=== PATIENT | male | born 1985 | race Caucasian/White ===

== ENCOUNTER 2016-06-18 23:58 | Emergency (ER) | payer MEDICARE, OTHER ==
[2016-06-19] MEDS ORDERED: SODIUM CHLORIDE 0.9% 1,000 ML IV STA (00:16)
[2016-06-19] MEDS ORDERED: HYDROmorphone 1 MG/ML 1 ML SYRINGE IVP STA (00:16)
[2016-06-19] MEDS ORDERED: ONDANSETRON 4 MG/2 ML VIAL IVP STA (00:16)
--- NOTE | 2016-06-19 00:17 | ED ---
Abdominal Pain HPI - General Chief Complaint: Abdominal Pain Stated Complaint: R Sided Abd Pain Time Seen by Provider: 06/19/16 00:16 Source: patient, family, RN notes reviewed Mode of arrival: ambulatory Limitations: no limitations - History of Present Illness Initial Comments: Is a 30-year-old male with chief complaint of lleft lower quadrant pain for the past 2 days. Patient reports that he has had normal bowel movements and denies any nausea or Vomiting. Patient reports that the pain is worse with movements. Patient states that he has no past medical history. Patient denies any fever or chills. Patient denies dysuria, hematuria, nausea, vomiting. He dd eat popcorn and peanuts earlier today. Patient has no surgical history besides tonsillectomy and ankle surgery. - Related Data Previous Rx's Medication Instructions Recorded Ciprofloxacin HCl [Cipro] 500 mg PO Q12HR #20 tablet 06/19/16 HYDROcodone/APAP 10-325MG [[place] 1 tab PO Q6H PRN #20 tab 06/19/16 10-325] metroNIDAZOLE [Flagyl] 500 mg PO TID #30 tab 06/19/16 Allergies Allergy/AdvReac Type Severity Reaction Status Date / Time No Known Allergies Allergy Verified 06/19/16 00:08 Review of Systems ROS Statement: Those systems with pertinent positive or pertinent negative responses have been documented in the HPI. ROS Other: All systems not noted in ROS Statement are negative. Past Medical History Past Medical History: No Reported History History of Any Multi-Drug Resistant Organisms: None Reported Past Surgical History: Orthopedic Surgery, Tonsillectomy Past Anesthesia/Blood Transfusion Reactions: No Reported Reaction Past Psychological History: No Psychological Hx Reported Smoking Status: Former smoker Past Alcohol Use History: None Reported Past Drug Use History: None Reported - Past Family History Mother Family Medical History: No Reported History Father Family Medical History: No Reported History General Exam - General Exam Comments Initial Comments: Patient is a 30-year-old male. He does not appear to be in any acute distress. Limitations: no limitations General appearance: alert, in no apparent distress Head exam: Present: atraumatic, normocephalic, normal inspection Eye exam: Present: normal appearance, PERRL, EOMI. Absent: scleral icterus, conjunctival injection, periorbital swelling ENT exam: Present: normal exam, mucous membranes moist Neck exam: Present: normal inspection. Absent: tenderness, meningismus, lymphadenopathy Respiratory exam: Present: normal lung sounds bilaterally. Absent: respiratory distress, wheezes, rales, rhonchi, stridor Cardiovascular Exam: Present: regular rate, normal rhythm, normal heart sounds. Absent: systolic murmur, diastolic murmur, rubs, gallop, clicks GI/Abdominal exam: Present: soft, tenderness (Mild left lower quadrant tenderness.), normal bowel sounds. Absent: distended, guarding, rebound, rigid Extremities exam: Present: normal inspection, full ROM, normal capillary refill. Absent: tenderness, pedal edema, joint swelling, calf tenderness Back exam: Present: normal inspection Neurological exam: Present: alert, oriented X3, CN II-XII intact Psychiatric exam: Present: normal affect, normal mood Skin exam: Present: warm, dry, intact, normal color. Absent: rash Course Vital Signs 06/19/16 06/19/16 06/19/16 00:04 00:51 02:37 Temperature 99 F 97.8 F 97.8 F Pulse Rate 106 H 78 78 Respiratory 20 20 20 Rate Blood Pressure 124/77 111/56 118/72 O2 Sat by Pulse 97 98 Oximetry 06/19/16 03:18 Temperature 98 F Pulse Rate 78 Respiratory 18 Rate Blood Pressure 124/67 O2 Sat by Pulse 97 Oximetry Medical Decision Making - Medical Decision Making Patient is a 30 year old male with chief complaint of LLQ pain for 2 days. Labs show mild leukocytosis at 14,000. Urinalysis is remarkable for blood. Patients pain is controlled with narcotics and fluids. PAtient given CT without contrast to diferentiate between nephrolithiasis and diverticulitis. CT scan shows diverticulitis with no abscesa. PAtient will be given Cipro and Flagyl and pain medicine. Return parameters discussed. Patient understands treatmetn plan and will comply. Patient given initial antibiotic dose in EC. - Lab Data Result diagrams: 06/19/16 00:45 06/19/16 00:45 Lab Results 06/19/16 06/19/16 06/19/16 Range/Units 00:45 00:45 00:45 WBC 14.5 H (3.8-10.6) k/uL RBC 4.83 (4.30-5.90) m/uL Hgb 14.9 (13.0-17.5) gm/dL Hct 45.1 (39.0-53.0) % MCV 93.4 (80.0-100.0) fL MCH 30.8 (25.0-35.0) pg MCHC 33.0 (31.0-37.0) g/dL RDW 13.4 (11.5-15.5) % Plt Count 251 (150-450) k/uL Neutrophils % 75 % Lymphocytes % 16 % Monocytes % 5 % Eosinophils % 1 % Basophils % 1 % Neutrophils # 10.9 H (1.3-7.7) k/uL Lymphocytes # 2.3 (1.0-4.8) k/uL Monocytes # 0.8 (0-1.0) k/uL Eosinophils # 0.2 (0-0.7) k/uL Basophils # 0.1 (0-0.2) k/uL Sodium 141 (137-145) mmol/L Potassium 3.9 (3.5-5.1) mmol/L Chloride 104 (98-107) mmol/L Carbon Dioxide 25 (22-30) mmol/L Anion Gap 12 mmol/L BUN 11 (9-20) mg/dL Creatinine 0.80 (0.66-1.25) mg/dL Est GFR (MDRD) Af Amer >60 (>60 ml/min/1.73 sqM) Est GFR (MDRD) Non-Af >60 (>60 ml/min/1.73 sqM) Glucose 100 H (74-99) mg/dL Calcium 9.0 (8.4-10.2) mg/dL Total Bilirubin 1.1 (0.2-1.3) mg/dL AST 15 L (17-59) U/L ALT 38 (21-72) U/L Alkaline Phosphatase 62 (38-126) U/L Total Protein 7.1 (6.3-8.2) g/dL Albumin 4.2 (3.5-5.0) g/dL Amylase <30 L (30-110) U/L Lipase 61 (23-300) U/L Urine Color Yellow Urine Appearance Clear (Clear) Urine pH 6.5 (5.0-8.0) Ur Specific [place] 1.019 (1.001-1.035) Urine Protein Trace H (Negative) Urine Glucose (UA) Negative (Negative) Urine Ketones Negative (Negative) Urine Blood Small H (Negative) Urine Nitrate Negative (Negative) Urine Bilirubin Negative (Negative) Urine Urobilinogen 6.0 (<2.0) mg/dL Ur Leukocyte Esterase Negative (Negative) Urine RBC 15 H (0-5) /hpf Urine WBC 2 (0-5) /hpf Ur Squamous Epith Cells 1 (0-4) /hpf Urine Mucus Rare H (None) /hpf - Radiology Data Radiology results: report reviewed CT abdomen Diverticulitis of descending colon, no obstructing calculus of kidneys and ureters. hepatomegaly. This was read by Dr. Good. Disposition Clinical Impression: Diverticulitis Disposition: HOME SELF-CARE Condition: Good Instructions: Diverticulitis (ED), Diverticulitis Diet (ED) Additional Instructions: Patient started to complete hematocrit prescription. Follow-up with primary care provider. Return to the EC if any alarming signs or symptoms occur. Prescriptions: Ciprofloxacin HCl [Cipro] 500 mg PO Q12HR #20 tablet HYDROcodone/APAP 10-325MG [[place] 10-325] 1 tab PO Q6H PRN #20 tab PRN Reason: Pain metroNIDAZOLE [Flagyl] 500 mg PO TID #30 tab Referrals: Daniel Mcnair MD [Primary Care Provider] - 1-2 days Time of Disposition: 03:10
[2016-06-19 00:53] VITALS: PULSE 78
[2016-06-19 00:59] LABS: Basophils # (A) 0.1 k/uL (0-0.2); Basophils % (A) 1 %; CHCM 34.4; Eosinophils # (A) 0.2 k/uL (0-0.7); Eosinophils % (A) 1 %; HCT 45.1 % (39.0-53.0); HDW 2.68; HGB 14.9 gm/dL (13.0-17.5); Luc # (Auto) 0.22; Luc % (Auto) 2; Lymphocytes # (A) 2.3 k/uL (1.0-4.8); Lymphocytes % (A) 16 %; MCH 30.8 pg (25.0-35.0); MCV 93.4 fL (80.0-100.0); Mean Platelet Volume 7.8; Monocytes # (A) 0.8 k/uL (0-1.0); Monocytes % (A) 5 %; Neutrophils # (A) 10.9 k/uL (1.3-7.7); Neutrophils % (A) 75 %; RBC 4.83 m/uL (4.30-5.90); RDW 13.4 % (11.5-15.5); WBC 14.5 k/uL (3.8-10.6); WBC (Perox) 14.45
[2016-06-19 01:01] LABS: Appearance,Urine Clear (Clear); Bilirubin,Urine Negative (Negative); Glucose,Urine (UA) Negative (Negative); Ketones,Urine Negative (Negative); Leukocyte Esterase,Urine Negative (Negative); Mucus,Urine Rare /hpf; Nitrite,Urine Negative (Negative); PH, Urine 6.5 (5.0-8.0); Particle Count 2118; Protein,Urine Trace (Negative); RBC,Urine 15 /hpf (0-5); Specific Gravity,Urine 1.019 (1.001-1.035); Squamous Epithelial Cell,Urine 1 /hpf (0-4); UA Billing (MACRO vs. MICRO) MICRO; WBC,Urine 2 /hpf (0-5)
[2016-06-19 01:08] LABS: ALT 38 U/L (21-72); AST 15 U/L (17-59); Alkaline Phosphatase 62 U/L (38-126); Amylase <30 U/L (30-110); Anion Gap 12 mmol/L; Blood Urea Nitrogen 11 mg/dL (9-20); Carbon Dioxide 25 mmol/L (22-30); Chloride 104 mmol/L (98-107); Glucose 100 mg/dL (74-99); Non-African American GFR(MDRD) >60 (>60 ml/min/1.73 sqM); Potassium 3.9 mmol/L (3.5-5.1); Sodium 141 mmol/L (137-145); Total Bilirubin 1.1 mg/dL (0.2-1.3); Total Protein 7.1 g/dL (6.3-8.2)
--- NOTE | 2016-06-19 03:05 | CT ---
EXAMINATION TYPE: CT abdomen pelvis wo con DATE OF EXAM: 06/19/2016 1:32 AM COMPARISON: NONE HISTORY: left sided abd pain, renal stone protocol CT DLP: 2244.50 mGycm Automated exposure control for dose reduction was used. TECHNIQUE: Helical acquisition of images was performed from the lung bases through the pelvis. FINDINGS: LUNG BASES: Mild dependent atelectasis in both lung bases. LIVER/GB: There is mild hepatomegaly. Gallbladder appears grossly unremarkable. PANCREAS: No significant abnormality is seen. SPLEEN: No significant abnormality is seen. ADRENALS: No significant abnormality is seen. KIDNEYS: The right kidney is rotated anteriorly. No significant obstructing stones or hydronephrosis or hydrou reter is noted. Left kidney showed no obstructing or nonobstructing opaque stones or hydronephrosis or hydroureter. RETROPERITONEAL ADENOPATHY: None visualized REPRODUCTIVE ORGANS: No significant abnormality is seen URINARY BLADDER: Urinary bladder is not well distended and is limited for evaluation. PELVIC ADENOPATHY: None visualized. OSSEOUS STRUCTURES: Degenerative disc disease changes at L5-S1. Multilevel degenerative changes in t he lumbar spine. BOWEL: Stomach and small bowel loops appear grossly unremarkable. [id number] fecal material is noted in the colon. Mild to moderate colonic diverticulosis is not ed. There is evidence of fat stranding and mucosal wall thickening in the descending colon as seen in the axial image 87 and coronal image 48 in the colonic segment measuring approximately 9 cm in length in the coronal image 48. These findings are suggestive of acute diverticulitis changes with small amoun t of free fluid in the left paracolic gutter area and fat stranding. No significant drainable abscess collection is noted at this time. The appendix is not well visualized for evaluation. No significant inflammation is noted in the appen matthew area. OTHER: Somewhat prominent vascular structures are noted in the anterior abdominal and pelvic wall. Ge neralized edema and anasarca changes are noted in the chest and abdomen and pelvic wall. IMPRESSION: 1. ACUTE DIVERTICULITIS CHANGES INVOLVING DESCENDING COLON WITHOUT DRAINABLE ABSCESS in the axial momo ge 88. 2. No definite obstructing opaque stones or hydronephrosis is noted bilaterally. 3. Hepatomegaly. A phone report is given to Guera Murphy the PA at the time of the dictation.
[2016-06-19] MEDS ORDERED: metroNIDAZOLE 500 MG TAB PO STA (03:09)
[2016-06-19] MEDS ORDERED: CIPROFLOXACIN HCL 500 MG TAB PO STA (03:09)
[2016-06-19 03:20] VITALS: BP 124/67; RESP 18; TEMP 98
== END 2016-06-19 03:25 | disposition home or self-care (01) ==
LOC: EC 23:58
DX: K57.32 Diverticulitis of large intestine without perforation or abscess without bleeding (principal); Z87.891 Personal history of nicotine dependence
CPT/HCPCS: 36415; 80053; 82150; 83690; 85025; 81001; 74176; 99284; 96374; 96375; 96361 ×2; J2405; J1170

== ENCOUNTER 2016-07-11 19:12 | Emergency (ER) | payer MEDICARE, OTHER ==
[2016-07-11 19:39] VITALS: RESP 18; TEMP 97
[2016-07-11] MEDS ORDERED: SODIUM CHLORIDE 0.9% 1,000 ML IV ONE (20:04)
[2016-07-11 20:28] LABS: Basophils # (A) 0.1 k/uL (0-0.2); Basophils % (A) 1 %; CH 32.1; CHCM 34.1; Eosinophils # (A) 0.2 k/uL (0-0.7); Eosinophils % (A) 2 %; HCT 45.9 % (39.0-53.0); HDW 2.71; HGB 15.4 gm/dL (13.0-17.5); Luc # (Auto) 0.21; Luc % (Auto) 2; Lymphocytes # (A) 2.4 k/uL (1.0-4.8); Lymphocytes % (A) 26 %; MCH 31.8 pg (25.0-35.0); MCHC 33.6 g/dL (31.0-37.0); MCV 94.8 fL (80.0-100.0); Mean Platelet Volume 7.4; Monocytes # (A) 0.5 k/uL (0-1.0); Monocytes % (A) 5 %; Neutrophils # (A) 5.7 k/uL (1.3-7.7); Neutrophils % (A) 63 %; RBC 4.84 m/uL (4.30-5.90); RDW 13.3 % (11.5-15.5); WBC 9.1 k/uL (3.8-10.6); WBC (Perox) 8.86
[2016-07-11] MEDS ORDERED: NA PHOS,M-B/NA PHOS,DI-BA 133 ML ENEMA RECTAL STA (20:30)
[2016-07-11 20:48] LABS: ALT 33 U/L (21-72); AST 18 U/L (17-59); Alkaline Phosphatase 60 U/L (38-126); Anion Gap 11 mmol/L; Blood Urea Nitrogen 16 mg/dL (9-20); Calcium 9.3 mg/dL (8.4-10.2); Carbon Dioxide 27 mmol/L (22-30); Chloride 103 mmol/L (98-107); Glucose 100 mg/dL (74-99); Magnesium 1.9 mg/dL (1.6-2.3); Non-African American GFR(MDRD) >60 (>60 ml/min/1.73 sqM); Potassium 4.5 mmol/L (3.5-5.1); Sodium 141 mmol/L (137-145); Total Bilirubin 0.6 mg/dL (0.2-1.3); Total Protein 7.1 g/dL (6.3-8.2)
[2016-07-11] MEDS ORDERED: PEG 3350-NA SULF,BICARB,CL/KCL 4,000 ML BOTTLE PO ONE (21:05)
--- NOTE | 2016-07-11 21:05 | ED ---
General Adult HPI - General Chief complaint: Abdominal Pain Stated complaint: no bowel movement Time Seen by Provider: 07/11/16 19:54 Source: patient, family, RN notes reviewed Mode of arrival: ambulatory Limitations: no limitations - History of Present Illness Initial comments: 30-year-old male presenting for abdominal pain and constipation. Patient states that he has a history of constipation. He is recently seen by his PCP for this several days ago and was diagnosed with hemorrhoids and started on hemorrhoid cream. He states he still been straining when he tries to defecate. He has still had some blood on the toilet paper when he wipes. He denies any nausea or vomiting associated. He denies any fevers or chills. He denies any significant medical history. He denies any abdominal surgical history. Mother and father are also here with him providing history. - Related Data Home Medications Medication Instructions Recorded Confirmed Phenyleph/Pramoxin/Glycr/W.pet 1 applic RECTAL DAILY PRN 07/11/16 07/11/16 [Preparation H Cream] Previous Rx's Medication Instructions Recorded Ciprofloxacin HCl [Cipro] 500 mg PO Q12HR #20 tablet 06/19/16 HYDROcodone/APAP 10-325MG [[place] 1 tab PO Q6H PRN #20 tab 06/19/16 10-325] metroNIDAZOLE [Flagyl] 500 mg PO TID #30 tab 06/19/16 Bisacodyl [Dulcolax] 10 mg PO BID #20 tablet. 07/11/16 Allergies Allergy/AdvReac Type Severity Reaction Status Date / Time No Known Allergies Allergy Verified 07/11/16 20:08 Review of Systems ROS Statement: Those systems with pertinent positive or pertinent negative responses have been documented in the HPI. ROS Other: All systems not noted in ROS Statement are negative. Past Medical History Past Medical History: No Reported History Additional Past Medical History / Comment(s): constipation History of Any Multi-Drug Resistant Organisms: None Reported Past Surgical History: Orthopedic Surgery, Tonsillectomy Additional Past Surgical History / Comment(s): oral surgery Past Anesthesia/Blood Transfusion Reactions: No Reported Reaction Past Psychological History: No Psychological Hx Reported Smoking Status: Former smoker Past Alcohol Use History: None Reported Past Drug Use History: None Reported - Past Family History Mother Family Medical History: No Reported History Father Family Medical History: No Reported History General Exam - General Exam Comments Initial Comments: General: Awake and Alert. No acute distress. Does not appear acutely ill. Eyes: GEO, EOM intact. No nystagmus. No scleral icterus. HENT: Atraumatic, normocephalic. Mucous membranes moist. Trachea midline. Neck: The neck is supple, there is no tenderness or JVD. Cardiovascular: Regular rate and rhythm. No murmur, rub, or gallop is appreciated. Distal pulses intact. Respiratory: Lungs are clear to auscultation bilaterally. No wheezes, rales, rhonchi. No respiratory distress. Gastrointestinal: Soft, Nontender. No rebound or guarding. Mild distention. No masses or organomegaly noted. No CVA tenderness. Musculoskeletal: No tenderness. Normal ROM. No gross deformity. No strength deficits. Neurological: A&Ox3. CN II-XII grossly intact, There are no obvious motor or sensory deficits. Coordination appears grossly intact. Speech is normal. Skin: Skin is warm and dry and no rashes or lesions are noted. Psychiatric: Cooperative, appropriate mood & affect, normal judgment. Limitations: no limitations Course Vital Signs 07/11/16 19:36 Temperature 97.0 F L Pulse Rate 85 Respiratory 18 Rate Blood Pressure 140/78 O2 Sat by Pulse 96 Oximetry Medical Decision Making - Medical Decision Making 30-year-old male with history of chronic constipation presenting for constipation and mild abdominal pain. Abdominal exam without any significant tenderness, abdomen is soft and without evidence of peritonitis. Lab work was performed which is grossly unremarkable. Abdominal x-ray without evidence of obstruction or perforation. Patient was given an enema with some results. Discussed continued treatment of his constipation at home. Was given a bottle of mag citrate to use at home. Also provided with Rx for stool softeners and instructions. Discussed continuing his hemorrhoid cream. Discussed close follow-up with his PCP. Discussed concerning signs and symptoms for immediate return to the ED. Patient and family are agreeable with plan and discharge home. - Lab Data Result diagrams: 07/11/16 20:11 07/11/16 20:11 Lab Results 07/11/16 07/11/16 Range/Units 20:11 20:11 WBC 9.1 (3.8-10.6) k/uL RBC 4.84 (4.30-5.90) m/uL Hgb 15.4 (13.0-17.5) gm/dL Hct 45.9 (39.0-53.0) % MCV 94.8 (80.0-100.0) fL MCH 31.8 (25.0-35.0) pg MCHC 33.6 (31.0-37.0) g/dL RDW 13.3 (11.5-15.5) % Plt Count 271 (150-450) k/uL Neutrophils % 63 % Lymphocytes % 26 % Monocytes % 5 % Eosinophils % 2 % Basophils % 1 % Neutrophils # 5.7 (1.3-7.7) k/uL Lymphocytes # 2.4 (1.0-4.8) k/uL Monocytes # 0.5 (0-1.0) k/uL Eosinophils # 0.2 (0-0.7) k/uL Basophils # 0.1 (0-0.2) k/uL Sodium 141 (137-145) mmol/L Potassium 4.5 (3.5-5.1) mmol/L Chloride 103 (98-107) mmol/L Carbon Dioxide 27 (22-30) mmol/L Anion Gap 11 mmol/L BUN 16 (9-20) mg/dL Creatinine 0.90 (0.66-1.25) mg/dL Est GFR (MDRD) Af Amer >60 (>60 ml/min/1.73 sqM) Est GFR (MDRD) Non-Af >60 (>60 ml/min/1.73 sqM) Glucose 100 H (74-99) mg/dL Calcium 9.3 (8.4-10.2) mg/dL Magnesium 1.9 (1.6-2.3) mg/dL Total Bilirubin 0.6 (0.2-1.3) mg/dL AST 18 (17-59) U/L ALT 33 (21-72) U/L Alkaline Phosphatase 60 (38-126) U/L Total Protein 7.1 (6.3-8.2) g/dL Albumin 4.3 (3.5-5.0) g/dL Lipase 140 (23-300) U/L - Radiology Data Radiology results: report reviewed, image reviewed Disposition Clinical Impression: Nonspecific abdominal pain, Constipation Disposition: HOME SELF-CARE Condition: Stable Instructions: Abdominal Pain (ED), Constipation (ED) Additional Instructions: Please take Mag Citrate when you get home. Drink half the bottle, wait a few hours, if no bowel movement, finish the bottle. Please take a stool softener twice a day starting tomorrow until you being having regular bowel movements. After that you may take stool softener once a day. Prescriptions: Bisacodyl [Dulcolax] 10 mg PO BID #20 tablet.dr Referrals: Daniel Mcnair MD [Primary Care Provider] - 1-2 days Time of Disposition: 21:33
[2016-07-11] MEDS ORDERED: MAGNESIUM CITRATE 296 ML BOTTLE PO ONE (21:11)
--- NOTE | 2016-07-11 21:24 | XR ---
EXAMINATION TYPE: XR KUB DATE OF EXAM: 07/11/2016 9:07 PM COMPARISON: 08/08/2009 HISTORY: Constipation TECHNIQUE: 3 views FINDINGS: Bowel gas pattern is normal. There is no sign of intestinal obstruction or pneumoperitoneum . Fecal pattern is normal. There are no pathologic calcifications over the kidneys. Lung bases are cl ear. IMPRESSION: Nonacute abdomen. There is clearing of the small bowel air-fluid levels compared to old e xam.
[2016-07-11 21:44] VITALS: BP 138/79; PULSE 77
== END 2016-07-11 21:45 | disposition home or self-care (01) ==
LOC: EC 19:12
DX: K59.00 Constipation, unspecified (principal); Z79.2 Long term (current) use of antibiotics; Z79.899 Other long term (current) drug therapy; Z87.891 Personal history of nicotine dependence
CPT/HCPCS: 36415; 74000; 80053; 83690; 83735; 85025; 96360; 99284

== ENCOUNTER 2019-02-15 19:40 | Emergency (ER) | payer MEDICARE, OTHER ==
[2019-02-15 20:21] VITALS: TEMP 97.4
--- NOTE | 2019-02-15 21:48 | ED ---
Lower Extremity Injury HPI - General Chief Complaint: Extremity Injury, Lower Stated Complaint: lower extremity pain Time Seen by Provider: 02/15/19 20:27 Source: patient Mode of arrival: ambulatory Limitations: no limitations - History of Present Illness Initial Comments: 33-year-old male with history told to place presents emergency part for chief complaint of bilateral anterior thigh pain x 1 day. Patient states after pushing carts yesterday at [employer] he has bilateral thigh pain. Patient denies any urinary symptoms or dark brown urine. Patient denies any hip pain or knee pain. Patient states he thinks he overdid it and was too active. Remaining review of system negative, denies redness, leg swelling. Patient is accompanied by his girlfriend. No further complaints. - Related Data Home Medications Medication Instructions Recorded Confirmed Phenyleph/Pramoxin/Glycr/W.pet 1 applic RECTAL DAILY PRN 07/11/16 07/11/16 [Preparation H Cream] Previous Rx's Medication Instructions Recorded Ciprofloxacin HCl [Cipro] 500 mg PO Q12HR #20 tablet 06/19/16 HYDROcodone/APAP 10-325MG [[place] 1 tab PO Q6H PRN #20 tab 06/19/16 10-325] metroNIDAZOLE [Flagyl] 500 mg PO TID #30 tab 06/19/16 Bisacodyl [Dulcolax] 10 mg PO BID #20 tablet. 07/11/16 Allergies Allergy/AdvReac Type Severity Reaction Status Date / Time No Known Allergies Allergy Verified 02/15/19 20:21 Review of Systems ROS Statement: Those systems with pertinent positive or pertinent negative responses have been documented in the HPI. ROS Other: All systems not noted in ROS Statement are negative. Past Medical History Past Medical History: No Reported History Additional Past Medical History / Comment(s): constipation History of Any Multi-Drug Resistant Organisms: None Reported Past Surgical History: Orthopedic Surgery, Tonsillectomy Additional Past Surgical History / Comment(s): oral surgery Past Anesthesia/Blood Transfusion Reactions: No Reported Reaction Past Psychological History: No Psychological Hx Reported Smoking Status: Former smoker Past Alcohol Use History: None Reported Past Drug Use History: None Reported - Past Family History Mother Family Medical History: No Reported History Father Family Medical History: No Reported History General Exam - General Exam Comments Initial Comments: General: The patient is awake and alert, in no distress, and does not appear acutely ill. Eye: Pupils are equal, round and reactive to light, extra-ocular movements are intact. No nystagmus. There is normal conjunctiva bilaterally. No signs of icterus. Cardiovascular: There is a regular rate and rhythm. No murmur, rub or gallop is appreciated. Respiratory: Lungs are clear to auscultation, respirations are non-labored, breath sounds are equal. No wheezes, stridor, rales, or rhonchi. Musculoskeletal: Normal inspection of the lower extremities b/l. Pain to palpation of quadricepts, mild.Normal ROM, no tenderness LE joints.. Strength 5/5. Sensation intact. DP pulses equal bilaterally 2+. Neurological: A&O x 3. CN II-XII intact grossly, There are no obvious motor or sensory deficits. Coordination appears grossly intact. Speech is normal. Skin: Skin is warm and dry and no rashes or lesions are noted. Psychiatric: Cooperative, appropriate mood & affect, normal judgment. Limitations: no limitations Course Vital Signs 02/15/19 20:18 Temperature 97.4 F L Pulse Rate 82 Respiratory 16 Rate Blood Pressure 136/78 O2 Sat by Pulse 98 Oximetry Medical Decision Making - Medical Decision Making 33-year-old male who presents emergency department for chief complaint of bilateral anterior thigh pain. Patient states his pushing carts yesterday. States he feels he over did it. Patient pain reproducible. No joint pain. Patient is ambulatory. Neurovascular intact. Appears well. No history of falls or direct trauma. CK within normal limits. Urinalysis on [place]. At this time do feel patient is stable for discharge with outpatient primary care follow-up worse instructions were discussed mother who was patient's guardian appeared--she is agreeable to plan discharge at this time. Discussed case with Dr. Villatoro who was agreeable with care plan. - Lab Data Lab Results 02/15/19 02/15/19 Range/Units 21:57 21:57 Creatine Kinase 78 (55-170) U/L Urine Color Yellow Urine Appearance Turbid (Clear) Urine pH 8.0 (5.0-8.0) Ur Specific [place] 1.023 (1.001-1.035) Urine Protein Trace H (Negative) Urine Glucose (UA) Negative (Negative) Urine Ketones Negative (Negative) Urine Blood Negative (Negative) Urine Nitrite Negative (Negative) Urine Bilirubin Negative (Negative) Urine Urobilinogen 2.0 (<2.0) mg/dL Ur Leukocyte Esterase Negative (Negative) Urine RBC 4 (0-5) /hpf Amorphous Sediment Rare H (None) /hpf Disposition Clinical Impression: Quadriceps muscle strain Disposition: HOME SELF-CARE Condition: Good Instructions (If sedation given, give patient instructions): R.I.C.E. Treatment (ED) Additional Instructions: Please use medication as discussed. Please follow-up with family doctor in the next 2 days.d. Please return to emergency room if the symptoms increase or worsen or for any other concerns. Is patient prescribed a controlled substance at d/c from ED?: No Referrals: Daniel Mcnair MD [Primary Care Provider] - 1-2 days Time of Disposition: 22:28
[2019-02-15 22:25] LABS: Amorphous Sediment,Urine Rare /hpf; Appearance,Urine Turbid (Clear); Bilirubin,Urine Negative (Negative); Blood,Urine Negative (Negative); Color,Urine Yellow; Glucose,Urine (UA) Negative (Negative); Ketones,Urine Negative (Negative); Leukocyte Esterase,Urine Negative (Negative); Nitrite,Urine Negative (Negative); Protein,Urine Trace (Negative); RBC,Urine 4 /hpf (0-5); Specific Gravity,Urine 1.023 (1.001-1.035)
[2019-02-15 22:40] VITALS: BP 136/78; PULSE 82; RESP 16
== END 2019-02-15 22:46 | disposition home or self-care (01) ==
LOC: EC 19:40
DX: S76.119A Strain of unspecified quadriceps muscle, fascia and tendon, initial encounter (principal); Z87.891 Personal history of nicotine dependence; X50.9XXA Other and unspecified overexertion or strenuous movements or postures, initial encounter; Y93.89 Activity, other specified; Y92.69 Other specified industrial and construction area as the place of occurrence of the external cause
CPT/HCPCS: 36415; 81001; 82550; 99283

== ENCOUNTER 2021-04-09 14:29 | Emergency (ER) | payer MEDICARE, OTHER ==
[2021-04-09 15:11] VITALS: BP 123/83; PULSE 61; RESP 20; TEMP 98.1
--- NOTE | 2021-04-09 17:15 | XR ---
EXAMINATION TYPE: XR chest 2V DATE OF EXAM: 04/09/2021 COMPARISON: NONE HISTORY: Dizziness and cough TECHNIQUE: 2 views FINDINGS: Heart and mediastinum are normal. Lungs are clear. Diaphragm is normal. Bony thorax appears normal. IMPRESSION: Normal chest. No adverse change.
[2021-04-09] MEDS ORDERED: AZITHROMYCIN 500 MG TAB PO STA (17:27)
--- NOTE | 2021-04-09 17:28 | ED ---
General Adult HPI - General Chief complaint: Upper Respiratory Infection Stated complaint: Cough, Sinus Infection Time Seen by Provider: 04/09/21 15:58 Source: patient, RN notes reviewed, old records reviewed Mode of arrival: ambulatory Limitations: no limitations - History of Present Illness Initial comments: Patient is a 35-year-old male with past medical history that is unremarkable who presents emergency Department complaining of rhinorrhea as well as a mild productive cough for one day. He denies fevers. Denies any sick contacts. AR concerned that he may have Covid 19. Denies any fevers, abdominal pain, nausea, vomiting. Denies chest pain. Has no other acute complaints at this time. Patient was evaluated when he was placed in a room. - Related Data Previous Rx's Medication Instructions Recorded Azithromycin [Zithromax] 250 mg PO DAILY 4 Days #4 tab 04/09/21 Allergies Allergy/AdvReac Type Severity Reaction Status Date / Time No Known Allergies Allergy Verified 04/09/21 17:19 Review of Systems ROS Statement: Those systems with pertinent positive or pertinent negative responses have been documented in the HPI. Review of Systems: CONST: Denies fever EYES: Denies blurry vision ENT: Endorses nasal congestion, cough. C/V: Denies Chest pain RESP: Denies shortness of breath GI: Denies abdominal pain : Denies dysuria SKIN: Denies rash. MSK: Denies joint pain. NEURO: Denies headache ROS Other: All systems not noted in ROS Statement are negative. Past Medical History Past Medical History: No Reported History Additional Past Medical History / Comment(s): constipation History of Any Multi-Drug Resistant Organisms: None Reported Past Surgical History: Orthopedic Surgery, Tonsillectomy Additional Past Surgical History / Comment(s): oral surgery Past Anesthesia/Blood Transfusion Reactions: No Reported Reaction Past Psychological History: No Psychological Hx Reported Smoking Status: Never smoker Past Alcohol Use History: None Reported Past Drug Use History: None Reported - Past Family History Mother Family Medical History: No Reported History Father Family Medical History: No Reported History General Exam - General Exam Comments Initial Comments: General: Appears in no acute distress. HEAD: Normal with no signs of head trauma. EYES: PERRLA, EOMI, conjunctiva normal, no discharge. ENT: Hearing grossly intact, normal oropharynx. Active rhinorrhea. RESPIRATORY: Clear breath sounds bilaterally. No wheezes, rales, or rhonchi. C/V: Regular rate and rhythm. S1 and S2 auscultated, no edema, peripheral puls es 2+ and intact throughout ABD: Abd is soft, nontender, nondistended EXT: Normal range of motion, no obvious deformity SKIN: No rashes or lesions observed on exposed skin. NEURO: Alert and oriented x 4. Limitations: no limitations Course Vital Signs 04/09/21 15:09 Temperature 98.1 F Pulse Rate 61 Respiratory 20 Rate Blood Pressure 123/83 O2 Sat by Pulse 98 Oximetry Medical Decision Making - Medical Decision Making Based on the patient's presentation and physical exam, I'm concerned for possible COVID-19 pneumonia. Covid swab was obtained in triage and was negative. Due to the patient's mildly productive cough, I did recommend that we obtain a chest x-ray. We also sent him home on a Z-Aric for possible bronchitis. Patient was in agreement with this plan. I do not believe that he requires any further laboratory studies or imaging at this time. He is not hypoxic. He is in no respiratory distress. Chest x-ray shows no acute cardiopulmonary process. At this time I believe it is safe for him to be discharged home. Patient was in agreement this plan. He will be given a dose of azithromycin prior to discharge as well as a prescription. I will provide the patient with a prescription for azithromycin 200 mg for 4 days. I instructed the patient to follow up with their PCP in the next 3 days. I explained that the patient should return to the emergency department if they experience any worsening symptoms. Strict return precautions were discussed with the patient. The patient expressed understanding of these instructions. I answered all questions that the patient had. The patient was discharged home in fair condition with their prescriptions and follow up information. - Lab Data Lab Results 04/09/21 Range/Units 15:13 Coronavirus (PCR) Not Detected (Not Detectd) Disposition Clinical Impression: Bronchitis, URI (upper respiratory infection) Disposition: HOME SELF-CARE Condition: Fair Instructions (If sedation given, give patient instructions): Upper Respiratory Infection (ED) Prescriptions: Azithromycin [Zithromax] 250 mg PO DAILY 4 Days #4 tab Is patient prescribed a controlled substance at d/c from ED?: No Referrals: Daniel Mcnair MD [Primary Care Provider] - 1-2 days
== END 2021-04-09 17:47 | disposition home or self-care (01) ==
LOC: EC 14:29
DX: J40 Bronchitis, not specified as acute or chronic (principal); J06.9 Acute upper respiratory infection, unspecified
CPT/HCPCS: 71046; 87635; 99283; 99284

== ENCOUNTER 2021-11-10 14:30 | Emergency (ER) | payer MEDICARE, OTHER ==
[2021-11-10 15:02] VITALS: BP 131/85; PULSE 76; RESP 16; TEMP 98.4
--- NOTE | 2021-11-10 16:13 | ED ---
General Adult HPI - General Chief complaint: Recheck/Abnormal Lab/Rx Stated complaint: High HR Source: patient Mode of arrival: ambulatory Limitations: no limitations - History of Present Illness Initial comments: Mir is a 35yo M who presents to the ER today for evaluation of abnormal heart rate on home BP cuff last night. Patient reports he was feeling well, he checked his blood pressure because he was told he should check it regularly. When he checked it he reports a heart rate was between 151 and 166. Patient did not feel like his heart was racing, he had no chest pain palpitation shortness breath lightheadedness or diaphoresis. He reports he felt well and didn't think that this was right but wasn't sure. Patient did not recheck his blood pressure today or his heart rate. He decided to come to the hospital for a checkup. Patient remains asymptomatic today. - Related Data Home Medications Medication Instructions Recorded Confirmed No Known Home Medications 11/10/21 11/10/21 Allergies Allergy/AdvReac Type Severity Reaction Status Date / Time No Known Allergies Allergy Verified 11/10/21 16:16 Review of Systems ROS Statement: Those systems with pertinent positive or pertinent negative responses have been documented in the HPI. ROS Other: All systems not noted in ROS Statement are negative. Past Medical History Past Medical History: No Reported History Additional Past Medical History / Comment(s): constipation History of Any Multi-Drug Resistant Organisms: None Reported Past Surgical History: Orthopedic Surgery, Tonsillectomy Additional Past Surgical History / Comment(s): oral surgery Past Anesthesia/Blood Transfusion Reactions: No Reported Reaction Past Psychological History: No Psychological Hx Reported Smoking Status: Never smoker Past Alcohol Use History: None Reported Past Drug Use History: None Reported - Past Family History Mother Family Medical History: No Reported History Father Family Medical History: No Reported History General Exam - General Exam Comments Initial Comments: Physical Exam GENERAL: Patient is well-developed and well-nourished. Patient is nontoxic and well-hydrated and is in no distress. Morbidly obese HENT: Normocephalic, Atraumatic. EYES: PERRL, EOMI PULMONARY: Unlabored respirations. No audible rales rhonchi or wheezing was noted. CARDIOVASCULAR: There is a regular rate and rhythm without any murmurs gallops or rubs. Strong peripheral pulses ABDOMEN: Soft and nontender with normal bowel sounds. SKIN: Skin is clear with no lesions or rashes and otherwise unremarkable. : Deferred NEUROLOGIC: Patient is alert and oriented x3. Moving all extremities spontaneously MUSCULOSKELETAL: Normal extremities with adequate strength and full range of motion. PSYCHIATRIC: Normal psychiatric evaluation. Limitations: no limitations Course Vital Signs 11/10/21 14:58 Temperature 98.4 F Pulse Rate 76 Respiratory 16 Rate Blood Pressure 131/85 O2 Sat by Pulse 97 Oximetry EKG Findings - EKG Comments: EKG Findings:: EKG was obtained due to report of abnormal heart rate at home, EKG was obtained at 1540, rate is 68, rhythm is sinus, NJ interval 196, QRS 95 QTC 379 there are no acute ST elevations or depressions no evidence of ischemia or infarction or arrhythmia. Medical Decision Making - Medical Decision Making Patient was seen and evaluated, patient reports using a wrist blood pressure cuff last night and being told that his heart rate was elevated. He had no symptoms at that time. He's had no symptoms today he did not recheck his vital signs at home today. Patient's heart rate in the 60s to 70s here. EKG is sinus rhythm. At this time no further workup is indicated patient is stable for discharge home. Patient was advised that should he have a heart rate in the 160s her feel like his heart is racing he should call 911 or come to the hospital immediately for evaluation. Disposition Clinical Impression: Well adult exam Disposition: HOME SELF-CARE Condition: Stable Additional Instructions: If your heart rate is elevated, come to the hospital immediately, bring your blood pressure cuff as well so we can make sure it is getting accurate readings Is patient prescribed a controlled substance at d/c from ED?: No Referrals: Daniel Mcnair MD [Primary Care Provider] - 1-2 days
== END 2021-11-10 16:31 | disposition home or self-care (01) ==
LOC: EC 14:30
DX: Z00.00 Encounter for general adult medical examination without abnormal findings (principal)
CPT/HCPCS: 93005

== ENCOUNTER 2021-12-08 16:08 | Emergency (ER) | payer MEDICARE, OTHER ==
[2021-12-08 16:17] VITALS: BP 135/84; PULSE 105; RESP 16; TEMP 98.5
--- NOTE | 2021-12-08 17:31 | CT ---
EXAMINATION TYPE: CT brain wo con CT DLP: 1168.4 mGycm, Automated exposure control for dose reduction was used. DATE OF EXAM: 12/08/2021 5:21 PM COMPARISON: CT 08/22/2011 CLINICAL INDICATION:Male, 35 years old with history of head injury, fall TECHNIQUE: Brain: Axial CT images of the brain were obtained with coronal and sagittal reformats created and rev iewed. Contrast used: None. Oral contrast used: None. FINDINGS: Brain: Extra-axial spaces: No abnormal extra-axial fluid collections. Ventricular system: Within normal limits Cerebral parenchyma: No acute intraparenchymal hemorrhage or mass effect. The abdullahi-white junction is well differentiated. Cerebellum: Unremarkable. Mass effect: No evidence of midline shift. Intracranial vasculature: unremarkable Soft tissues: Normal. Calvarium/osseous structures: No depressed skull fracture. Paranasal sinuses and mastoid air cells: Moderate scattered paranasal sinus disease. Visualized orbits: Orbital contents are intact. IMPRESSION: 1. No acute intracranial process. 2. Moderate paranasal sinus disease.
--- NOTE | 2021-12-08 17:47 | ED ---
Fall HPI - General Chief Complaint: Fall Stated Complaint: Fall, Head Injury Time Seen by Provider: 12/08/21 16:49 Source: patient Mode of arrival: ambulatory - History of Present Illness Initial Comments: This 35-year-old male presents with a complaint of falling. He states that he was coughing very heavily as he has a history of asthma. He then apparently got lightheaded and fell to the ground and hit his forehead on the ground. He denies any actual loss of consciousness. He states that he did hit his head fairly hard. There is no nausea, vomiting, dizziness, visual complaints, speech problems, incoordination, or other neurologic injuries. There is no other injury such as lacerations or musculoskeletal problems. He states that he was sent in from his workplace for further evaluation. He does request a computed tomography scan of his brain as he states that he hit his head fairly hard. He is not on any blood thinners. No other complaints or modifying factors. - Related Data Home Medications Medication Instructions Recorded Confirmed No Known Home Medications 11/10/21 11/10/21 Allergies Allergy/AdvReac Type Severity Reaction Status Date / Time No Known Allergies Allergy Verified 12/08/21 16:17 Review of Systems ROS Statement: Those systems with pertinent positive or pertinent negative responses have been documented in the HPI. ROS Other: All systems not noted in ROS Statement are negative. Past Medical History Past Medical History: Asthma Additional Past Medical History / Comment(s): constipation History of Any Multi-Drug Resistant Organisms: None Reported Past Surgical History: Orthopedic Surgery, Tonsillectomy Additional Past Surgical History / Comment(s): oral surgery Past Anesthesia/Blood Transfusion Reactions: No Reported Reaction Past Psychological History: No Psychological Hx Reported Smoking Status: Never smoker Past Alcohol Use History: None Reported Past Drug Use History: None Reported - Past Family History Mother Family Medical History: No Reported History Father Family Medical History: No Reported History General Exam - General Exam Comments Initial Comments: GENERAL: The patient is well nourished and well hydrated. VITAL SIGNS: Heart rate, blood pressure, respiratory rate reviewed as recorded in nurse's notes. EYES: Pupils are round and reactive. Extraocular movements are intact. No conjunctival / lid redness or swelling. ENT: No external evidence of injury, swelling, or ecchymosis. Airway is patent. Throat is clear. NECK: Nontender. No swelling or evidence of injury. No subcutaneous emphysema. Trachea is midline. No thyroid mass. HEART: Regular rate and rhythm. Good peripheral pulses. LUNGS/CHEST: Breath sounds clear and equal bilaterally. No rales, rhonchi, or wheezes. No ecchymosis, subcutaneous emphysema, or tenderness. ABDOMEN: Abdomen soft without tenderness. No palpable masses or organomegaly. No peritoneal signs. No abdominal wall swelling or ecchymosis. EXTREMITIES: No extremity tenderness. Normal muscle tone and function. No thoracolumbar tenderness. NEUROLOGIC: Sensation is grossly intact. Cranial nerve exam reveals face is symmetrical, tongue is midline, speech is clear. SKIN: No abrasions or ecchymosis is noted. No induration or masses noted. PSYCHIATRIC: Alert and oriented. Appropriate behavior and judgment. Limitations: no limitations Course Vital Signs 12/08/21 16:14 Temperature 98.5 F Pulse Rate 105 H Respiratory 16 Rate Blood Pressure 135/84 O2 Sat by Pulse 96 Oximetry Medical Decision Making - Medical Decision Making The patient was seen and examined. He does request computed tomography scan of his brain and this is completed and does not show any acute process. It is felt as though he stable for discharge. It appears as though his cough is sporadic and likely related to asthma and is not severe. No coughing is noted while in the ER. Close follow-up with primary care recommended. Return parameters discussed. Disposition Clinical Impression: Fall, Head injury Disposition: HOME SELF-CARE Condition: Good Instructions (If sedation given, give patient instructions): Head Injury (ED) Is patient prescribed a controlled substance at d/c from ED?: No Referrals: Ana Beal MD [Primary Care Provider] - 1-2 days Time of Disposition: 17:47
== END 2021-12-08 19:00 | disposition home or self-care (01) ==
LOC: EC 16:08
DX: S09.90XA Unspecified injury of head, initial encounter (principal); J45.909 Unspecified asthma, uncomplicated; W18.09XA Striking against other object with subsequent fall, initial encounter
CPT/HCPCS: 70450; 99284

== ENCOUNTER 2022-02-02 06:48 | Emergency (ER) | payer MEDICARE, OTHER ==
[2022-02-02 06:55] VITALS: PULSE 87; RESP 18; TEMP 97.6
--- NOTE | 2022-02-02 07:31 | XR ---
EXAMINATION TYPE: XR wrist complete RT DATE OF EXAM: 02/02/2022 7:26 AM INDICATION: Patient age:Male; 36 years old; Reason for study: fall, pain; COMPARISON: None TECHNIQUE: 4 views of the right wrist. Frontal, navicular, lateral, and oblique. FINDINGS: No acute osseous pathology, joint dislocation, or joint effusion. No evidence of any soft tissue swelling is seen. IMPRESSION: No acute osseous pathology.
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
[2022-02-02 07:55] VITALS: BP 142/89
== END 2022-02-02 07:55 | disposition home or self-care (01) ==
LOC: EC 06:48
DX: S63.501A Unspecified sprain of right wrist, initial encounter (principal); J45.909 Unspecified asthma, uncomplicated; W18.39XA Other fall on same level, initial encounter

== ENCOUNTER 2022-08-13 14:15 | Emergency (ER) | payer MEDICARE, OTHER ==
[2022-08-13 14:24] VITALS: TEMP 97.6
--- NOTE | 2022-08-13 15:06 | XR ---
Left foot HISTORY: Infection COMPARISON: 01/20/2015 TECHNIQUE: 2 views left foot were obtained. FINDINGS: There is no fracture, dislocation, intraosseous or intra-articular abnormality. There is no radiopaqu e foreign body or abnormal soft tissue calcification. There is a small plantar spur. There is metallic plate with screws for fixation of a fibular fracture . IMPRESSION: No acute trauma. No cortical destruction or periosteal reaction. No soft tissue calcification or gas.
--- NOTE | 2022-08-13 15:49 | ED ---
General Adult HPI - General Chief complaint: Extremity Injury, Lower Stated complaint: L foot sore Time Seen by Provider: 08/13/22 14:36 Source: patient, RN notes reviewed Mode of arrival: ambulatory Limitations: no limitations - History of Present Illness Initial comments: 36-year-old male presents emergency Department with chief complaint left foot sore. Patient states that he took a standard to his calcium is foot states that he now noticed an area of swelling, tenderness. Patient denies being diabetic denies any fevers or chills she states she is able to ambulate but states he walks a lot at work. - Related Data Home Medications Medication Instructions Recorded Confirmed Cetirizine HCl 10 mg PO DAILY 02/02/22 02/02/22 Montelukast [Singulair] 10 mg PO HS 02/02/22 02/02/22 Previous Rx's Medication Instructions Recorded clindamycin HCL 300 mg PO QID #40 cap 08/13/22 Allergies Allergy/AdvReac Type Severity Reaction Status Date / Time No Known Allergies Allergy Verified 02/02/22 08:17 Review of Systems ROS Statement: Those systems with pertinent positive or pertinent negative responses have been documented in the HPI. ROS Other: All systems not noted in ROS Statement are negative. Past Medical History Past Medical History: Asthma Additional Past Medical History / Comment(s): constipation History of Any Multi-Drug Resistant Organisms: None Reported Past Surgical History: Orthopedic Surgery, Tonsillectomy Additional Past Surgical History / Comment(s): oral surgery Past Anesthesia/Blood Transfusion Reactions: No Reported Reaction Past Psychological History: No Psychological Hx Reported Smoking Status: Never smoker Past Alcohol Use History: None Reported Past Drug Use History: None Reported - Past Family History Mother Family Medical History: No Reported History Father Family Medical History: No Reported History General Exam Limitations: no limitations General appearance: alert, in no apparent distress Head exam: Present: atraumatic, normocephalic, normal inspection Respiratory exam: Present: normal lung sounds bilaterally. Absent: respiratory distress, wheezes, rales, rhonchi, stridor Cardiovascular Exam: Present: regular rate, normal rhythm, normal heart sounds. Absent: systolic murmur, diastolic murmur, rubs, gallop, clicks Extremities exam: Present: other (Left foot there is noted sore at the ball of the foot, there is no fluctuance, no erythema) Course Vital Signs 08/13/22 08/13/22 14:22 15:55 Temperature 97.6 F Pulse Rate 85 83 Respiratory 16 18 Rate Blood Pressure 124/81 107/72 O2 Sat by Pulse 98 95 Oximetry Medical Decision Making - Medical Decision Making Was pt. sent in by a medical professional or institution ([facility], [facility] LTC, urgent care, hospital, or half-way...) When possible be specific @ -No Did you speak to anyone other than the patient for history (EMS, parent, family, police, friend...)? What history was obtained from this source @ -No Did you review nursing and triage notes (agree or disagree)? Why? @ -I reviewed and agree with nursing and triage notes Were old charts reviewed (outside hosp., previous admission, EMS record, old EKG, old radiological studies, urgent care reports/EKG's, half-way records)? Report findings @ -No old charts were reviewed Differential Diagnosis (chest pain, altered mental status, abdominal pain women, abdominal pain men, vaginal bleeding, weakness, fever, dyspnea, syncope, headache, dizziness, GI bleed, back pain, seizure, CVA, palpatations, mental health, musculoskeletal)? @ -A cellulitis, foot infection, blistered, callus, this list is not all- inclusive EKG interpreted by me (3pts min.). @ -None X-rays interpreted by me (1pt min.). @ -X-ray of the foot no acute osseous abnormality no foreign body CT interpreted by me (1pt min.). @ -None done U/S interpreted by me (1pt. min.). @ -None done What testing was considered but not performed or refused? (CT, X-rays, U/S, labs)? Why? @ -None What meds were considered but not given or refused? Why? @ -None Did you discuss the management of the patient with other professionals (professionals i.e. [facility], CNA LTC, lab, RT, psych nurse, psychotherapist social worker, loaders, teacher, plain clothes police officer, correctional case manager)? Give summary @ -No Was smoking cessation discussed for >3mins.? @ -No Was critical care preformed (if so, how long)? @ -No Were there social determinants of health that impacted care today? How? (Homelessness, low income, unemployed, alcoholism, drug addiction, transportation, low edu. Level, literacy, decrease access to med. care, snf, rehab)? @ -No Was there de-escalation of care discussed even if they declined (Discuss DNR or withdrawal of care, Hospice)? DNR status @ -No What co-morbidities impacted this encounter? (DM, HTN, Smoking, COPD, CAD, Cancer, CVA, ARF, Chemo, Hep., AIDS, mental health diagnosis, sleep apnea, morbid obesity)? @ -None Was patient admitted / discharged? Hospital course, mention meds given and route, prescriptions, significant lab abnormalities, going to OR and other pertinent info. @ -Discharge patient has noted sore, concerning for early ulceration area pa nathan is not a diabetic though has diabetic foot wound appearance patient started on antibiotics will follow-up with podiatry Undiagnosed new problem with uncertain prognosis? @ -No Drug Therapy requiring intensive monitoring for toxicity (Heparin, Nitro, Insulin, Cardizem)? @ -No Were any procedures done? @ -No Diagnosis/symptom? @ -Foot infection Acute, or Chronic, or Acute on Chronic? @ -Acute] Uncomplicated (without systemic symptoms) or Complicated (systemic symptoms)? @ -Uncomplicated Side effects of treatment? @ -No Exacerbation, Progression, or Severe Exacerbation? @ -No Poses a threat to life or bodily function? How? (Chest pain, USA, VA, pneumonia, PE, COPD, DKA, ARF, appy, cholecystitis, CVA, Diverticulitis, Homicidal, Suicidal, threat to staff... and all critical care pts) @ -No Disposition Clinical Impression: Foot infection, Blister of foot Disposition: HOME SELF-CARE Condition: Stable Instructions (If sedation given, give patient instructions): Diabetic Foot Ulcers (ED) Additional Instructions: Please return to the Emergency Department if symptoms worsen or any other concerns. Prescriptions: clindamycin HCL 300 mg PO QID #40 cap Is patient prescribed a controlled substance at d/c from ED?: No Referrals: Ana Beal MD [Primary Care Provider] - 1-2 days Kenroy Velasco DPM [STAFF PHYSICIAN] - 1-2 days Time of Disposition: 15:49
[2022-08-13 15:57] VITALS: BP 107/72; PULSE 83; RESP 18
== END 2022-08-13 15:57 | disposition home or self-care (01) ==
LOC: EC 14:15
DX: S90.822A Blister (nonthermal), left foot, initial encounter (principal); J45.909 Unspecified asthma, uncomplicated; X58.XXXA Exposure to other specified factors, initial encounter
CPT/HCPCS: 99283

== ENCOUNTER 2023-04-05 20:42 | Emergency (ER) | payer MEDICARE, OTHER ==
[2023-04-05 21:09] VITALS: BP 137/84; PULSE 101; RESP 18
--- NOTE | 2023-04-05 21:47 | ED ---
Back Pain HPI - General Chief Complaint: Back Pain/Injury Stated Complaint: Back Pain Time Seen by Provider: 04/05/23 21:35 Source: patient, RN notes reviewed Limitations: no limitations - History of Present Illness Initial Comments: This is a pleasant 37-year-old male with a history of asthma. He presents to the emergency department today complaining of low back pain. 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 Patient believes he injured his back doing this. It was worse this morning when he got up. Patient tried to work but in the process of bending and twisting states that had increased pain and leaving work. Denies any proms of bowel movements urination. Pain does radiate into the right hip. Abdomen nature, exacerbated by movement, twisting, bending, alleviated by position and rest. Tingling. No fever or chills. Patient denies any chest pain or shortness of breath. No rashes or lesions. No direct trauma. Nonsmoker MD Complaint: back injury - Related Data Home Medications Medication Instructions Recorded Confirmed Cetirizine HCl 10 mg PO DAILY 02/02/22 02/02/22 Montelukast [Singulair] 10 mg PO HS 02/02/22 02/02/22 Previous Rx's Medication Instructions Recorded clindamycin HCL 300 mg PO QID #40 cap 08/13/22 Cyclobenzaprine [Flexeril] 10 mg PO TID PRN #20 tab 04/05/23 Ibuprofen [Motrin] 600 mg PO Q8HR PRN #30 tab 04/05/23 Allergies Allergy/AdvReac Type Severity Reaction Status Date / Time No Known Allergies Allergy Verified 04/05/23 21:02 Review of Systems ROS Statement: Those systems with pertinent positive or pertinent negative responses have been documented in the HPI. ROS Other: All systems not noted in ROS Statement are negative. Past Medical History Past Medical History: Asthma Additional Past Medical History / Comment(s): constipation History of Any Multi-Drug Resistant Organisms: None Reported Past Surgical History: Orthopedic Surgery, Tonsillectomy Additional Past Surgical History / Comment(s): oral surgery Past Anesthesia/Blood Transfusion Reactions: No Reported Reaction Past Psychological History: No Psychological Hx Reported Smoking Status: Never smoker Past Alcohol Use History: None Reported Past Drug Use History: None Reported - Past Family History Mother Family Medical History: No Reported History Father Family Medical History: No Reported History General Exam - General Exam Comments Initial Comments: Patient does not appear to be ill or toxic. Vital signs reviewed, The refill less than 2 seconds.2 through 12 intact. Alert and oriented Limitations: no limitations General appearance: alert, in no apparent distress, obese Head exam: Present: atraumatic, normocephalic, normal inspection Eye exam: Present: normal appearance, PERRL, EOMI. Absent: scleral icterus, conjunctival injection, periorbital swelling ENT exam: Present: normal exam, mucous membranes moist Neck exam: Present: normal inspection. Absent: tenderness, meningismus, lymphadenopathy Respiratory exam: Present: normal lung sounds bilaterally. Absent: respiratory distress, wheezes, rales, rhonchi, stridor Cardiovascular Exam: Present: regular rate, normal rhythm, normal heart sounds. Absent: systolic murmur, diastolic murmur, rubs, gallop, clicks GI/Abdominal exam: Present: soft. Absent: distended, tenderness, guarding, rebound, rigid Extremities exam: Present: normal inspection, full ROM, normal capillary refill. Absent: tenderness, pedal edema, joint swelling, calf tenderness Back exam: Present: normal inspection, tenderness, paraspinal tenderness (Right lumbar). Absent: full ROM, CVA tenderness (R), CVA tenderness (L), vertebral tenderness, rash noted Expanded Back exam: Present: normal rectal tone. Absent: saddle anesthesia Back exam: Negative Straight Leg Raising: Left, Right Neurological exam: Present: alert, oriented X3, CN II-XII intact, normal gait, motor sensory deficit, reflexes normal. Absent: altered, abnormal gait Psychiatric exam: Present: normal affect, normal mood Skin exam: Present: warm, dry, intact, normal color. Absent: rash Course Vital Signs 04/05/23 21:02 Pulse Rate 101 H Respiratory 18 Rate Blood Pressure 137/84 O2 Sat by Pulse 98 Oximetry Medical Decision Making - Medical Decision Making Was pt. sent in by a medical professional or institution? @ -[no Did you speak to anyone other than the patient for history? @ -Mother Did you review nursing and triage notes? @ -Agree Were old charts reviewed? @ -no Differential Diagnosis? @ - Differential diagnosis includes but not limited to: Lumbar strain, is not. Consistent with teenagers such as cauda equina syndrome, herniated disc, infectious process, consistent with systemic disease process. Patient has no saddle anesthesia. No bowel or bladder problems. Ambulating without difficulty. Most consistent with lumbar strain. EKG interpreted by me (3pts min.)? @ -[none] X-rays interpreted by me (1pt min.)? @ -[none] CT interpreted by me (1pt min.)? @ -[none] U/S interpreted by me (1pt. min.)? @ -[none] What testing was considered but not performed? (CT, X-rays, U/S, labs)? Why? @ Imaging was considered to include x-ray. However the patient had no direct trauma. No evidence of cauda equina syndrome or infectious process. I did not feel this would change course of treatment and disposition What meds were considered but not given? Why? @ -[none] Did you discuss the management of the patient with other professionals? @ -no Did you reconcile home meds? @ -[none] Was smoking cessation discussed for >3mins.? @ -[none] Was critical care preformed (if so, how long)? @ -[none] Were there social determinants of health that impacted care today? How? ( Homelessness, low income, unemployed, alcoholism, drug addiction, transportation, low edu. Level, literacy, decrease access to med. care, fpc, rehab)? @ -no Was there de-escalation of care discussed even if they declined? (Discuss DNR or withdrawal of care, Hospice)? @ -[Discuss DNR or withdrawal of care, Hospice?] What co-morbidities impacted this encounter? (DM, HTN, Smoking, COPD, CAD, Cancer, CVA, Hep., AIDS, mental health diagnosis, sleep apnea, morbid obesity)? @ -none Was patient admitted / discharged? @ -Discharge, stable Undiagnosed new problem with uncertain prognosis? @ -[none] Drug Therapy requiring intensive monitoring for toxicity (Heparin, Nitro, Insulin, Cardizem)? @ -[none] Were any procedures done? @ -[none] Diagnosis/symptom? @ -Acute lumbosacral strain, initial Acute, or Chronic, or Acute on Chronic? @ -Acute Uncomplicated (without systemic symptoms) or Complicated (systemic symptoms)? @ -Uncomplicated Side effects of treatment? @ -[none] Exacerbation, Progression, or Severe Exacerbation] @ -[no] Poses a threat to life or bodily function? @ -[no] Patient was told to return to the ER for any signs or symptoms worsen. Told to return immediately if any other problems arise. All questions answered. Treatment plan discussed. Patient in agreement Every effort has been made to ensure accuracy of this dictation. However, due to the limitations of electronic medical records and dictation devices, errors in charting still occur. Conservative therapy discussed. Red flag return symptoms discussed in detail with both the patient and his mother. Disposition Clinical Impression: Mechanical back pain, Acute myofascial strain of lumbosacral region Disposition: HOME SELF-CARE Condition: Good Instructions (If sedation given, give patient instructions): Acute Low Back Pain (ED) Additional Instructions: Light walking is okay, avoid lifting, twisting, or bending for the next 5 days. Take [id number] acetaminophen as directed on the bottle for pain control. Do not drive while taking a muscle relaxer. Follow-up with your regular physician as directed. Return to the ER immediately if any symptoms worsen, new symptoms arise, or any other problems develop. Prescriptions: Cyclobenzaprine [Flexeril] 10 mg PO TID PRN #20 tab PRN Reason: Spasms Ibuprofen [Motrin] 600 mg PO Q8HR PRN #30 tab PRN Reason: Pain Is patient prescribed a controlled substance at d/c from ED?: No When asked, does pt state using other controlled substances?: No If prescribed controlled substance>3 days was MAPS reviewed?: No Referrals: Ana Beal MD [Primary Care Provider] - 04/11/23 Time of Disposition: 21:43
== END 2023-04-05 21:58 | disposition home or self-care (01) ==
LOC: EC 20:42
DX: S39.012A Strain of muscle, fascia and tendon of lower back, initial encounter (principal); J45.909 Unspecified asthma, uncomplicated; E66.9 Obesity, unspecified; Z68.43 Body mass index [BMI] 50.0-59.9, adult; Z79.899 Other long term (current) drug therapy; X50.0XXA Overexertion from strenuous movement or load, initial encounter; Y99.0 Civilian activity done for income or pay
CPT/HCPCS: 99283

== ENCOUNTER 2024-08-20 21:30 | Emergency (ER) | payer MEDICARE, OTHER ==
[2024-08-20 21:48] VITALS: RESP 18
--- NOTE | 2024-08-20 22:36 | ED ---
Wound/Laceration HPI - General Chief Complaint: Wound/Laceration Stated Complaint: R Finger Laceration Time Seen by Provider: 08/20/24 21:46 Source: patient, RN notes reviewed Mode of arrival: ambulatory Limitations: no limitations - History of Present Illness Initial Comments: This is a 38-year-old male presenting for right finger laceration occurring at 1830 today. Patient states he was cutting chocolate when he accidentally cut his finger. States tetanus vaccination is up-to-date. Denies other injuries. Onset/Timin -: hour(s) Time: 18:30 Extremity Location: Right: Hand Place: home Patient Tetanus UTD: Yes Context: accidental - Related Data Home Medications Medication Instructions Recorded Confirmed Cetirizine HCl 10 mg PO DAILY 02/02/22 02/02/22 Montelukast [Singulair] 10 mg PO HS 02/02/22 02/02/22 Previous Rx's Medication Instructions Recorded clindamycin HCL 300 mg PO QID #40 cap 08/13/22 Cyclobenzaprine [Flexeril] 10 mg PO TID PRN #20 tab 04/05/23 Ibuprofen [Motrin] 600 mg PO Q8HR PRN #30 tab 04/05/23 Cephalexin [Keflex] 500 mg PO Q6HR 1 Days #20 cap 08/20/24 Allergies Allergy/AdvReac Type Severity Reaction Status Date / Time No Known Allergies Allergy Verified 04/05/23 21:02 Review of Systems ROS Statement: Those systems with pertinent positive or pertinent negative responses have been documented in the HPI. ROS Other: All systems not noted in ROS Statement are negative. Past Medical History Past Medical History: Asthma, COPD Additional Past Medical History / Comment(s): constipation History of Any Multi-Drug Resistant Organisms: None Reported Past Surgical History: Orthopedic Surgery, Tonsillectomy Additional Past Surgical History / Comment(s): oral surgery Past Anesthesia/Blood Transfusion Reactions: No Reported Reaction Past Psychological History: No Psychological Hx Reported Smoking Status: Current some day smoker Past Alcohol Use History: None Reported Past Drug Use History: None Reported - Past Family History Mother Family Medical History: No Reported History Father Family Medical History: No Reported History General Exam Limitations: no limitations General appearance: alert, in no apparent distress Head exam: Present: atraumatic, normocephalic, normal inspection Eye exam: Present: normal appearance, PERRL, EOMI. Absent: scleral icterus, conjunctival injection, periorbital swelling ENT exam: Present: normal exam, mucous membranes moist Neck exam: Present: normal inspection. Absent: tenderness, meningismus, lymph adenopathy Respiratory exam: Present: normal lung sounds bilaterally. Absent: respiratory distress, wheezes, rales, rhonchi, stridor Cardiovascular Exam: Present: regular rate, normal rhythm, normal heart sounds. Absent: systolic murmur, diastolic murmur, rubs, gallop, clicks GI/Abdominal exam: Present: soft, normal bowel sounds. Absent: distended, tenderness, guarding, rebound, rigid Extremities exam: Present: normal inspection, full ROM, normal capillary refill, other (1.5 cm deep horizontal laceration to radial aspect of right index finger PIP joint without active bleeding or foreign body. FROM). Absent: tenderness, pedal edema, joint swelling, calf tenderness Back exam: Present: normal inspection Neurological exam: Present: alert, oriented X3, CN II-XII intact Psychiatric exam: Present: normal affect, normal mood Skin exam: Present: warm, dry, intact, normal color. Absent: rash Course Vital Signs 08/20/24 08/20/24 21:42 23:28 Temperature 97.8 F 97.7 F Pulse Rate 107 H 93 Respiratory 18 18 Rate Blood Pressure 127/80 122/75 O2 Sat by Pulse 96 98 Oximetry Procedures - Laceration Laceration #1 Consent Obtained: verbal consent Indication: laceration Site: hand Size (cm): 2 Description: linear Depth: simple, single layer Anesthetic Used: lidocaine 1% Anesthesia Technique: local infiltration, nerve block Amount (mls): 4 Pre-repair: wound explored, irrigated extensively Type of Sutures: nylon Size of Sutures: 5-0 Number of Sutures: 6 Technique: running Patient Tolerated Procedure: well, no complications Medical Decision Making - Medical Decision Making Was pt. sent in by a medical professional or institution (Dr. PA, PAYROLL BENEFITS ADMINISTRATOR, urgent care, hospital, or senior care...) When possible be specific @ -No Did you speak to anyone other than the patient for history (EMS, parent, family, police, friend...)? What history was obtained from this source @ -No Did you review nursing and triage notes (agree or disagree)? Why? @ -I reviewed and agree with nursing and triage notes Were old charts reviewed (outside hosp., previous admission, EMS record, old EKG, old radiological studies, urgent care reports/EKG's, senior care records)? Report findings @ -No old charts were reviewed Differential Diagnosis (chest pain, altered mental status, abdominal pain women, abdominal pain men, vaginal bleeding, weakness, fever, dyspnea, syncope, headache, dizziness, GI bleed, back pain, seizure, CVA, palpatations, mental health, musculoskeletal)? @ -Differential Musculoskeletal Muscular strain, contusion, ligament sprain, fracture, arthritis, septic arthritis, bursitis, cellulitis, muscle spasm, nerve compression, DVT, arterial occlusion, herpes zoster, electrolyte abnormality, tumor.... This is not meant to be in all inclusive list EKG interpreted by me (3pts min.). @ -Not done X-rays interpreted by me (1pt min.). @ -None done CT interpreted by me (1pt min.). @ -None done U/S interpreted by me (1pt. min.). @ -None done What testing was considered but not performed or refused? (CT, X-rays, U/S, labs)? Why? @ -None What meds were considered but not given or refused? Why? @ -None Did you discuss the management of the patient with other professionals (professionals i.e. , PA, PAYROLL BENEFITS ADMINISTRATOR, lab, RT, psych nurse, elementary school social worker, new car make ready worker, teacher, sales and service officer, adult protective caseworker)? Give summary @ -No Was smoking cessation discussed for >3mins.? @ -No Was critical care preformed (if so, how long)? @ -No Were there social determinants of health that impacted care today? How? (Homelessness, low income, unemployed, alcoholism, drug addiction, transportation, low edu. Level, literacy, decrease access to med. care, halfway, rehab)? @ -No Was there de-escalation of care discussed even if they declined (Discuss DNR or withdrawal of care, Hospice)? DNR status @ -No What co-morbidities impacted this encounter? (DM, HTN, Smoking, COPD, CAD, Cancer, CVA, ARF, Chemo, Hep., AIDS, mental health diagnosis, sleep apnea, morbid obesity)? @ -None Was patient admitted / discharged? Hospital course, mention meds given and route, prescriptions, significant lab abnormalities, going to OR and other pertinent info. @ -Laceration sutured under sterile conditions after thorough irrigation and cleaning. Patient provided initial dose of p.o. Keflex in ER with remaining regimen sent to patient's pharmacy. Advised of suture wound care instructions. Discussed patient with Dr. Gonzales. Undiagnosed new problem with uncertain prognosis? @ -No Drug Therapy requiring intensive monitoring for toxicity (Heparin, Nitro, Insulin, Cardizem)? @ -No Were any procedures done? @ -Lacerations sutured under sterile conditions. See procedure notes Diagnosis/symptom? @ -Finger laceration without foreign body Acute, or Chronic, or Acute on Chronic? @ -Acute Uncomplicated (without systemic symptoms) or Complicated (systemic symptoms)? @ -Uncomplicated Side effects of treatment? @ -No Exacerbation, Progression, or Severe Exacerbation? @ -No Poses a threat to life or bodily function? How? (Chest pain, [place], [place], pneumonia, PE, COPD, DKA, ARF, appy, cholecystitis, CVA, Diverticulitis, Homicidal, Suicidal, threat to staff... and all critical care pts) @ -No Disposition Clinical Impression: Laceration Disposition: HOME SELF-CARE Condition: Good Instructions (If sedation given, give patient instructions): Care For Your Stitches (ED) Additional Instructions: Keep sutures clean with antibacterial soap and water at least twice daily along with dressing change. Follow-up with medical facility in 7-10 days for suture removal. Prescriptions: Cephalexin [Keflex] 500 mg PO Q6HR 1 Days #20 cap Is patient prescribed a controlled substance at d/c from ED?: No Referrals: Ana Beal MD [Primary Care Provider] - 1-2 days Time of Disposition: 23:27
[2024-08-20] MEDS: CEPHALEXIN 500 MG CAP PO STA (22:42)
[2024-08-20] MEDS: LIDOCAINE 1% INJ 10MG/ML (20 ML MDV) SQ ONE (22:43)
[2024-08-20 23:29] VITALS: BP 122/75; PULSE 93; TEMP 97.7
== END 2024-08-20 23:33 | disposition home or self-care (01) ==
LOC: EC 21:30
DX: S61.210A Laceration without foreign body of right index finger without damage to nail, initial encounter (principal); F17.200 Nicotine dependence, unspecified, uncomplicated; W26.8XXA Contact with other sharp object(s), not elsewhere classified, initial encounter
CPT/HCPCS: 99282; 12001; J2003

== ENCOUNTER 2024-11-04 18:24 | Emergency (ER) | payer MEDICARE, OTHER ==
[2024-11-04 18:37] VITALS: TEMP 98.2
--- NOTE | 2024-11-04 18:48 | ED ---
General Adult HPI - General Source: patient Mode of arrival: ambulatory Limitations: no limitations <Osito Ludwig - Last Filed: 11/04/24 20:12> - General Source: patient, RN notes reviewed Mode of arrival: ambulatory Limitations: no limitations <Anca Smith - Last Filed: 11/04/24 21:59> - General Chief complaint: Extremity Injury, Lower Stated complaint: R foot injury Time Seen by Provider: 11/04/24 18:48 - History of Present Illness Initial comments: Quick note: 38-year-old male presenting with chief complaint of right ankle injury. He rolled his ankle. He did not fall. No other injuries. (Osito Ludwig) 38-year-old male presents to the emergency department for evaluation of right foot injury. Patient reports that he rolled his ankle. He notes pain in the right lateral foot. He states that he has not attempted to bear weight since the injury. Denies any other injury or fall. Denies any numbness or tingling. (Anca Smith) - Related Data Home Medications Medication Instructions Recorded Confirmed Cetirizine HCl 10 mg PO DAILY 02/02/22 02/02/22 Montelukast [Singulair] 10 mg PO HS 02/02/22 02/02/22 Previous Rx's Medication Instructions Recorded clindamycin HCL 300 mg PO QID #40 cap 08/13/22 Cyclobenzaprine [Flexeril] 10 mg PO TID PRN #20 tab 04/05/23 Ibuprofen [Motrin] 600 mg PO Q8HR PRN #30 tab 04/05/23 Cephalexin [Keflex] 500 mg PO Q6HR 1 Days #20 cap 08/20/24 Allergies Allergy/AdvReac Type Severity Reaction Status Date / Time No Known Allergies Allergy Verified 11/04/24 18:37 Review of Systems ROS Other: All systems not noted in ROS Statement are negative. <Osito Ludwig - Last Filed: 11/04/24 20:12> ROS Other: All systems not noted in ROS Statement are negative. <Anca Smith - Last Filed: 11/04/24 21:59> ROS Statement: Those systems with pertinent positive or pertinent negative responses have been documented in the HPI. Past Medical History Past Medical History: Asthma, COPD Additional Past Medical History / Comment(s): constipation History of Any Multi-Drug Resistant Organisms: None Reported Past Surgical History: Orthopedic Surgery, Tonsillectomy Additional Past Surgical History / Comment(s): oral surgery Past Anesthesia/Blood Transfusion Reactions: No Reported Reaction Past Psychological History: No Psychological Hx Reported Smoking Status: Current some day smoker Past Alcohol Use History: None Reported Past Drug Use History: None Reported - Past Family History Mother Family Medical History: No Reported History Father Family Medical History: No Reported History <Osito Ludwig - Last Filed: 11/04/24 20:12> General Exam Limitations: no limitations <Osito Ludwig - Last Filed: 11/04/24 20:12> Limitations: no limitations General appearance: alert, in no apparent distress Head exam: Present: atraumatic, normocephalic, normal inspection Eye exam: Present: normal appearance, PERRL, EOMI. Absent: scleral icterus, conjunctival injection, periorbital swelling ENT exam: Present: normal exam, mucous membranes moist Extremities exam: Present: full ROM, tenderness (Tenderness palpation over the proximal fifth metatarsal), normal capillary refill, other (DP and PT pulses 2+) Neurological exam: Present: alert, oriented X3 Psychiatric exam: Present: normal affect, normal mood Skin exam: Present: warm, dry, intact, normal color. Absent: rash <Anca Smith - Last Filed: 11/04/24 21:59> - General Exam Comments Initial Comments: Visual Physical Exam Vital signs reviewed General: Well-appearing, nontoxic, no acute distress. Head: Normocephalic, atraumatic Eyes: PERRLA, EOMI ENT: Airway patent Chest: Nonlabored breathing Skin: No visual rash, normal skin tone Neuro: Alert and oriented 3 Musculoskeletal: No gross abnormalities (Osito Ludwig) Course Vital Signs 11/04/24 18:35 Temperature 98.2 F Pulse Rate 107 H Respiratory 20 Rate Blood Pressure 136/86 O2 Sat by Pulse 96 Oximetry Medical Decision Making <Osito Ludwig - Last Filed: 11/04/24 20:12> <Anca Smith - Last Filed: 11/04/24 21:59> - Medical Decision Making I performed the quick note portion of this visit, electronically signed Maloree Ludwig Osito Ren) Was pt. sent in by a medical professional or institution (MAURISIO Calderón, SENIOR CLIMATE ADVISOR, urgent care, hospital, or snf...) When possible be specific @ -No Did you speak to anyone other than the patient for history (EMS, parent, family, police, friend...)? What history was obtained from this source @ -No Did you review nursing and triage notes (agree or disagree)? Why? @ -I reviewed and agree with nursing and triage notes Were old charts reviewed (outside hosp., previous admission, EMS record, old EKG, old radiological studies, urgent care reports/EKG's, snf records)? Report findings @ -No old charts were reviewed Differential Diagnosis (chest pain, altered mental status, abdominal pain women, abdominal pain men, vaginal bleeding, weakness, fever, dyspnea, syncope, headache, dizziness, GI bleed, back pain, seizure, CVA, palpatations, mental health, musculoskeletal)? @ -Differential Musculoskeletal Muscular strain, contusion, ligament sprain, fracture, arthritis, septic arthritis, bursitis, cellulitis, muscle spasm, nerve compression, DVT, arterial occlusion, herpes zoster, electrolyte abnormality, tumor.... This is not meant to be in all inclusive list EKG interpreted by me (3pts min.). @ -None X-rays interpreted by me (1pt min.). @ -X-ray of the right foot reveals no evidence of acute fracture CT interpreted by me (1pt min.). @ -None done U/S interpreted by me (1pt. min.). @ -None done What testing was considered but not performed or refused? (CT, X-rays, U/S, labs)? Why? @ -None What meds were considered but not given or refused? Why? @ -None Did you discuss the management of the patient with other professionals (professionals i.e. MAURISIO Calderón, SENIOR CLIMATE ADVISOR, lab, RT, psych nurse, outreach and education social worker, spinning frame tender, teacher, boat officer, case preparer and liner)? Give summary @ -No Was smoking cessation discussed for >3mins.? @ -No Was critical care preformed (if so, how long)? @ -No Were there social determinants of health that impacted care today? How? (Homelessness, low income, unemployed, alcoholism, drug addiction, transportation, low edu. Level, literacy, decrease access to med. care, retirement, rehab)? @ -No Was there de-escalation of care discussed even if they declined (Discuss DNR or withdrawal of care, Hospice)? DNR status @ -No What co-morbidities impacted this encounter? (DM, HTN, Smoking, COPD, CAD, Cancer, CVA, ARF, Chemo, Hep., AIDS, mental health diagnosis, sleep apnea, morbid obesity)? @ -None Was patient admitted / discharged? Hospital course, mention meds given and route, prescriptions, significant lab abnormalities, going to OR and other pertinent info. @ -Discharge. Patient presented emergency department for right foot pain. X- rays obtained revealing no evidence of acute fracture. Patient placed in an Aircast. Advised symptomatic treatment at this time. Patient will be discharged home. He is understanding agreeable to plan. Patient stable at time of discharge. Case discussed with Dr. Gonzales. Undiagnosed new problem with uncertain prognosis? @ -No Drug Therapy requiring intensive monitoring for toxicity (Heparin, Nitro, Ins ulin, Cardizem)? @ -No Were any procedures done? @ -No Diagnosis/symptom? @ -Foot sprain Acute, or Chronic, or Acute on Chronic? @ -Acute Uncomplicated (without systemic symptoms) or Complicated (systemic symptoms)? @ -Uncomplicated Side effects of treatment? @ -No Exacerbation, Progression, or Severe Exacerbation? @ -No Poses a threat to life or bodily function? How? (Chest pain, [place], [place], pneumonia, PE, COPD, DKA, ARF, appy, cholecystitis, CVA, Diverticulitis, Homicidal, Suicidal, threat to staff... and all critical care pts) @ -No (Anca Smith) Disposition <Osito Ludwig - Last Filed: 11/04/24 20:12> Is patient prescribed a controlled substance at d/c from ED?: No <Anca Smith - Last Filed: 11/04/24 21:59> Clinical Impression: Foot sprain Disposition: HOME SELF-CARE Condition: Stable Instructions (If sedation given, give patient instructions): Foot Sprain (ED) Additional Instructions: Rest, ice, elevate the foot and ankle. Please follow with your doctor. Return to the emergency department for new or worsening symptoms. Referrals: Ana Beal MD [Primary Care Provider] - 1-2 days
--- NOTE | 2024-11-04 21:53 | XR ---
EXAMINATION TYPE: XR foot complete RT DATE OF EXAM: 11/04/2024 9:17 PM COMPARISON: None. CLINICAL INDICATION: Male, 38 years old with history of 5th metatarsal pain, pain TECHNIQUE: 3 view(s) obtained. FINDINGS: No acute fracture or dislocation evident. Joint spaces are preserved. There is a punctate radiopaque foreign body at the great toe. This can be on the skin surface. There appears be an old fracture of t he fifth metatarsal. No acute fractures evident. Calcaneal heel spurs are present Follow up exams can be performed 7-10 days from acute trauma for continued pain. IMPRESSION: 1. No acute osseous abnormality right foot. 2. Calcaneal heel spurs. 3. Tiny punctate radiopaque foreign body may be along the skin surface of the inferior medial right t emporal. [facility], , 11/04/2024 9:50 PM
[2024-11-04 22:23] VITALS: BP 147/102; PULSE 90; RESP 18
--- NOTE | 2024-11-05 09:57 | XR ---
EXAMINATION TYPE: XR ankle complete RT DATE OF EXAM: 11/04/2024 7:20 PM COMPARISON: None. CLINICAL INDICATION: Male, 38 years old with history of twisting injury, pain TECHNIQUE: 3 view(s) obtained. FINDINGS: Ankle mortise is intact. No acute fracture or dislocation evident. The soft tissues appear normal. Pl [place] and Achilles tendon calcaneal heel spurs are present. IMPRESSION: 1. No acute osseous abnormality right ankle. 2. Calcaneal heel spurs [facility], , 11/04/2024 8:31 PM
== END 2024-11-04 22:23 | disposition home or self-care (01) ==
LOC: EC 18:24
DX: S93.601A Unspecified sprain of right foot, initial encounter (principal); F17.200 Nicotine dependence, unspecified, uncomplicated; X50.1XXA Overexertion from prolonged static or awkward postures, initial encounter
CPT/HCPCS: 99283